=== PATIENT | male | born 1950 | race Caucasian/White ===

== ENCOUNTER 2017-10-15 06:18 | Day surgery (SDC) | payer MEDICARE, BC ==
[2017-10-14 14:33] LABS: HEMATOCRIT 45.6 % (42.0-54.0); MCH 31.8 pg (26.0-34.0); MCHC 35.1 g/dL (31.0-37.0); MCV 90.7 fL (80.0-100.0); MEAN PLATELET VOLUME 9.6 fL (7.4-10.4); RBC 5.03 10x6/uL (4.20-6.10); RDW 12.9 % (11.5-14.5)
[~2017-10-15] VITALS: Ht 182.9 cm; Wt 102.1 kg
--- NOTE | ~2017-10-15 | OP ---
PATIENT NAME: ISHAN BRIGHT MEDICAL RECORD: [id number] :46 LOCATION:D.OPS ADMISSION DATE: SURGEON: JOE POND DPM DATE OF OPERATION: 10/15/2017 PREOPERATIVE DIAGNOSES: 1. Hallux abductovalgus, left foot. 2. Instability, left first metatarsal cuneiform joint. 3. Plantar plate rupture, left second metatarsophalangeal joint. 4. Hammertoe deformity, left second digit. POSTOPERATIVE DIAGNOSES: 1. Hallux abductovalgus, left foot. 2. Instability, left first metatarsal cuneiform joint. 3. Plantar plate rupture, left second metatarsophalangeal joint. 4. Hammertoe deformity, left second digit. PROCEDURES: 1. Thao bunionectomy, left foot. 2. First metatarsal cuneiform joint fusion, left foot. 3. Indira osteotomy, left foot. 4. Plantar plate repair, left foot of the second MPJ. 5. PIPJ fusion, left second digit. ANESTHESIA: General with preoperative popliteal block per the anesthesia department. HEMOSTASIS: Left thigh tourniquet at 350 mmHg. PREOPERATIVE DETAILS: The patient was taken to the OR, placed on the operating table in supine position. This was followed by induction of general anesthesia. The left extremity was then prepped and draped in the usual aseptic technique followed by exsanguination of extremity and inflation of tourniquet. PROCEDURE #1: Thao bunionectomy, left foot: A 15-blade was used to create an incision over dorsal aspect of the left first metatarsal extending to the base of proximal phalanx of the hallux. The incision was deepened down through subcutaneous tissue. The first MPJ was then acquired and an inverted L capsulotomy was performed. The medial capsular flap was reflected and the head of the first metatarsal was delivered. A sagittal saw was used to resect the medial eminence. Attention was then directed to the first interspace where a lateral release was performed. Good clinical reduction of the lateral contracture was verified. PROCEDURE #2: First metatarsal cuneiform joint fusion, left foot: The incision as described in #1 was carried proximal, dorsal to the medial cuneiform. The incision was deepened down through subcutaneous tissue being sure to avoid all vital structures. Dissection was carried down to the periosteum where a linear periosteal incision was made and the first met cuneiform joint was delivered. A sagittal saw was used to resect the joint. Temporary fixation was required and a 5-hole plate with one screw crossing the fusion site was placed with excellent rigid internal fixation as well as alignment confirmed with the C-arm. The wound was flushed. The periosteum and first MPJ capsule was repaired with 2-0 Vicryl, the subcutaneous tissue with 3-0 Vicryl, and the skin was closed with 4-0 Rapide in a subcuticular technique followed by Dermabond. OPERATIVE REPORT [id number] ISHAN BRIGHT PROCEDURE #3: Indira osteotomy, left second metatarsal: A 15-blade was used to create a curvilinear incision over dorsal aspect of the second metatarsal extending on top of the PIPJ of the second digit. The incision was deepened down through subcutaneous tissue being sure to avoid all vital structures. Dissection was carried down to the extensor longus tendon, which was transected in a Z fashion and carried proximally and dissection. The second MPJ was acquired and linear capsulotomy was performed and the capsule was freed from around the second MPJ. At this time, a sagittal saw was used to create an osteotomy from dorsal distal to plantar proximal in the second metatarsal head and the metatarsal head was pushed proximal and temporarily fixated with K-wire. A second K-wire was then placed in the proximal phalanx of the second digit. PROCEDURE #4: Plantar plate repair, left second MPJ: A wire distractor was placed over the wires and the joint was distracted. On initial inspection, there was a significant tear through the plantar plate, which ran underneath the metatarsal head. The medial plantar plate was intact. At this time, a 15-blade was used to complete the tear all the way through, being sure to avoid the flexor tendons and a Scorpion passer was used to pass FiberWire through what was left of the plantar plate laterally as well as pigtail suture passer was used to pass suture through the flexor tendon to try to get extra pull plantarly due to the fact that the plantar plate was in such poor shape. Once this was completed, 2 small drill holes were put in the base of the proximal phalanx of the second digit. The FiberWire was then passed up through the 2 holes. At this time, the Indira osteotomy was fixated. The temporary pins were removed. The head was pushed back in place where it should be and popoff screws were used to fixate the Indira osteotomy. With the second digit now held in a plantar flexed and lateral position, which is opposite of the deformity, the surgeon's knots were used to tighten the plantar plate to the base of the proximal phalanx, the holes that were drilled previously. Once the surgeon's knots were completed, there was much better alignment of the second MPJ due to the plantar plate repair. PROCEDURE #5: The incision as described above was utilized to expose the PIPJ reflecting the extensor longus tendon. A sagittal saw was used to resect the head of the proximal phalanx and the base of the middle phalanx. Drill holes were then made in both and a bone graft was placed in the holes compressing the fusion site noting excellent alignment. The wound was then flushed. The second MPJ capsule was repaired with 3-0 Vicryl. The extensor longus tendon was then repaired with 3-0 Vicryl, subcutaneous tissue was reapproximated with 3-0 Vicryl and the skin was closed with 4-0 Rapide in a subcuticular technique followed by Dermabond. Adaptic, 4 x 4 and Conform were used to dress all the wounds followed by application of modified Toney compression dressing. Tourniquet was deflated. POSTOPERATIVE DETAILS: The patient tolerated the procedure well and left the OR with vital signs stable and vascular status at preop levels. The patient was transferred to recovery per anesthesia in stable condition. TRANSINT:[id number] Voice Confirmation ID: [id number] DOCUMENT ID: [id number] OPERATIVE REPORT [id number] ISHAN BRIGHT MCKAY DPM at 0749 CC: [id number] DICTATION DATE: 10/15/17 1107 TRANSPORTATION BROKER: 10/15/17 1308 [facility] 10/15/17 [facility] [address] [place] [address]
[~2017-10-15 06:18] MED LIST: ASPIRIN EC81 M1 PO; OMEPRAZOLE20 M1 PO
[2017-10-15 07:08] VITALS: BP 117/83; Ht 182.9 cm; Wt 102.1 kg
== END 2017-10-15 13:02 | disposition home or self-care (01) ==
LOC: D.OPS 06:18 → D.PAN 08:30 → D.OPS 10:00
PROVIDERS: Anesthesiology
DX: M20.12 Hallux valgus (acquired), left foot (principal); M25.375 Other instability, left foot; S93.145A Subluxation of metatarsophalangeal joint of left lesser toe(s), initial encounter; X58.XXXA Exposure to other specified factors, initial encounter; M20.42 Other hammer toe(s) (acquired), left foot

== ENCOUNTER 2018-09-30 05:00 | Day surgery (SDC) | payer MEDICARE, BC ==
[2018-09-29 15:05] LABS: HEMATOCRIT 45.6 % (42.0-54.0); HEMOGLOBIN 15.7 g/dL (13.5-17.5); MCH 32.2 pg (26.0-34.0); MCHC 34.4 g/dL (31.0-37.0); MCV 93.6 fL (80.0-100.0); MEAN PLATELET VOLUME 10.1 fL (7.4-10.4); RBC 4.87 10x6/uL (4.20-6.10); RDW 13.3 % (11.5-14.5)
[~2018-09-30] VITALS: Ht 182.9 cm; Wt 104.3 kg
[2018-09-30] MEDS ORDERED: MULTI-DAY VITAM1 TAB (05:56)
[2018-09-30] MEDS ORDERED: GLUCOSAMINE HC500 MG (05:57)
[2018-09-30] MEDS ORDERED: OMEPRAZOLE20 M1 (05:58)
[2018-09-30 06:05] VITALS: BP 128/96; Ht 182.9 cm; Wt 104.3 kg
--- NOTE | 2018-09-30 10:00 | NUR ---
0950 [place] DIET SERVED
--- NOTE | 2018-10-07 08:37 | OP ---
PATIENT NAME: ISHAN BRIGHT MEDICAL RECORD: [id number] :46 LOCATION:D.OPS ADMISSION DATE: SURGEON: JOE POND DPM DATE OF OPERATION: 09/30/2018 PREOPERATIVE DIAGNOSES: 1. Right HAV. 2. Instability, right first met cuneiform joint. 3. Plantar plate rupture, right second MPJ. 4. Right second digit Hammertoe. POSTOPERATIVE DIAGNOSES: 1. Right HAV. 2. Instability, right first met cuneiform joint. 3. Plantar plate rupture, right second MPJ. 4. Right second digit Hammertoe. PROCEDURES: 1. Right Thao bunionectomy. 2. Right first met cuneiform joint fusion. 3. Right Indira osteotomy, second metatarsal. 4. Plantar plate repair, right second MPJ. 5. Right second PIPJ fusion. ANESTHESIA: Preoperative popliteal block per the anesthesia department with intraoperative general anesthesia as well as injection of 5 mL of lidocaine and Marcaine plain on the medial ankle of the right foot and coursing of the saphenous nerve. HEMOSTASIS: Right thigh tourniquet at 350 mmHg. PREOPERATIVE DETAILS: The patient was taken to the OR and placed on the operating table in a supine position. This was followed by induction of general anesthesia and infiltration of local anesthetic. The right extremity was then prepped and draped in usual aseptic technique followed by exsanguination and inflation of tourniquet. PROCEDURE #1: Right Thao bunionectomy. A 15-blade was used to create an incision from the dorsal aspect of the medial cuneiform down to the distal aspect of the metatarsal towards the base of the proximal phalanx of the hallux. The incision was deepened down through subcutaneous tissue being sure to avoid all vital structures. Dissection was carried down to the first MPJ where an inverted L capsulotomy was performed. The medial capsular flap was reflected and the head of the first metatarsal was delivered. A sagittal saw was used to resect the medial eminence. Attention was then directed to the first interspace where a lateral release was performed. PROCEDURE #2: First met cuneiform joint fusion. The incision as described above was deepened down to the periosteum on the dorsal aspect of the medial cuneiform and dorsal first metatarsal. At this time, a sagittal saw was used to resect the first met cuneiform joint. Temporary fixation was placed, a 5-hole plate with one screw crossing the fusion site was then placed. Fluoroscopy was used to verify good placement and alignment. The wound was flushed. The joint capsule of the first MPJ was repaired with 2-0 Vicryl. The periosteum was then closed with 2-0 Vicryl as well. The subcutaneous tissue was reapproximated with OPERATIVE REPORT [id number] ISHAN BRIGHT 4-0 Rapide and the skin was closed with 4-0 Rapide in a subcuticular technique followed by Dermabond. PROCEDURE #3: Indira osteotomy, right second metatarsal. A 15-blade was used to create a curvilinear incision overlying the second metatarsal and up on top to the PIPJ of the second digit. The incision was deepened down through subcutaneous tissue. The extensor longus tendon was visualized and transected in a Z fashion, giving exposure to the dorsal aspect of the second MPJ. At this time, a dorsal capsulotomy was performed releasing all dorsal structures. McGlamry scoop elevator was then used to free all plantar structures. A sagittal saw was then used to create an osteotomy from dorsal distal to plantar proximal through the metatarsal head and distal shaft. The capital fragment was translocated proximally and temporally fixated with a K-wire. PROCEDURE #4: Plantar plate repair, right second MPJ. Another K-wire was then placed in the proximal phalanx of the second digit. Wire retractor was then placed and the joint was distracted. Visualization showed that there was significant tearing of the plantar and lateral aspect of the plantar plate. At this time, a 15-blade was used to finish the tear. A scorpion passer was then used to pass FiberWire through the plantar plate, 2 small drill holes were made in the base of the proximal phalanx of the second digit. The FiberWire was then passed up through the drill holes. At this time, the wire retractor was removed. The K-wires were removed. The Indira osteotomy was reapproximated giving about 1-2 mm of shortening and 2 popoff screws were used to fixate the Indira osteotomy. At this time with the digit held in plantar flexion, the FiberWire was passed up to the proximal phalanx was tied with surgeon's knots allowing excellent alignment of the second MPJ. PROCEDURE #5: PIPJ fusion, right second digit. The extensor longus tendon was dissected from off the base of the middle phalanx giving visualization to the entire joint. A sagittal saw was used to resect the head of the proximal phalanx and the base of middle phalanx. Small drill hole was made in each. The bone graft was placed across the fusion site with the capital fragment on top of the bone graft, giving excellent alignment and reduction of the hammertoe. The wound was flushed. The joint capsule was repaired with 2-0 Vicryl, the extensor longus tendon was repaired with 4-0 Rapide and the subcutaneous tissue was reapproximated with 4-0 Rapide and the skin was closed with 4-0 Rapide in a subcuticular technique followed by Dermabond. Adaptic, 4 x 4, and Conform were used to dress the wound followed by application of modified Toney compression dressing. The tourniquet was deflated. POSTOPERATIVE DETAILS: The patient tolerated the procedure well and left the OR with vital signs stable and vascular status at preoperative levels. The patient was transported to recovery per anesthesia in stable condition. TRANSINT:[id number] Voice Confirmation ID: [id number] DOCUMENT ID: [id number] OPERATIVE REPORT [id number] ISHAN BRIGHT, JOE REINOSO at 0837 CC: [id number] DICTATION DATE: 09/30/18916 STUDENT SERVICES COUNSELOR: 09/30/18 1157 [facility] 09/30/18 [id number] [place] [address]
== END 2018-09-30 10:50 | disposition home or self-care (01) ==
LOC: D.OPS 05:00 → D.PAN 07:00 → D.OPS 10:50
PROVIDERS: Anesthesiology
DX: M20.11 Hallux valgus (acquired), right foot (principal); M25.374 Other instability, right foot; S93.144A Subluxation of metatarsophalangeal joint of right lesser toe(s), initial encounter; M20.41 Other hammer toe(s) (acquired), right foot; Z01.812 Encounter for preprocedural laboratory examination